=== PATIENT | male | born 1985 | race Caucasian/White ===

== ENCOUNTER → 2018-01-17 10:54 | Outpatient (CLI) | payer OTHER, SELFPAY | DX: Z23 Encounter for immunization (principal) | CPT/HCPCS: 90471; 90686 ==

== ENCOUNTER 2018-11-17 17:18 | Emergency (ER) | payer OTHER, SELFPAY ==
[2018-11-17 17:26] VITALS: BP 129/81; PULSE 60; RESP 15; TEMP 36.6; O2SAT 100; BMI 25.8
--- NOTE | 2018-11-17 17:49 | DI.CT.S_ITS ---
PROCEDURE: CT HEAD/BRAIN WO CON INDICATIONS: New headaches, R sided facial numbness x4 days. TECHNIQUE: Noncontrast 4.5 mm thick angled axial sections acquired from the foramen magnum to the vertex, with coronal and sagittal reformats. For radiation dose reduction, the following was used: automated exposure control, adjustment of mA and/or kV according to patient size. COMPARISON: None. FINDINGS: Image quality: Excellent. CSF spaces: Basal cisterns are patent. No extra-axial fluid collections. Ventricles are normal in size and shape. Brain: No intracranial hemorrhage, mass, or mass effect. Peña-white matter interface is preserved. Skull and face: Calvarium and visualized facial bones are intact, without suspicious lesions. Sinuses: Visualized sinuses and mastoids are clear. IMPRESSION: 1. No acute intracranial abnormality. Dictated by: Nolberto Junior M.D. on 11/17/2018 at 18:17 Approved by: Nolberto Junior M.D. on 11/17/2018 at 18:26
--- NOTE | 2018-11-17 17:54 | ED.NEUROSD ---
HPI - Neuro Symptoms/Deficit <PAVEL Pritchard - Last Filed: 11/17/18 19:20> General Chief Complaint: Neuro Symptoms/Deficit Stated Complaint: right side facial numbness Time Seen by Provider: 11/17/18 17:36 Source: patient Mode of arrival: ambulatory Limitations: no limitations History of Present Illness HPI Narrative: 33-year-old male with a history of asthma, presents emergency department complaining of a headache that started 4 days ago and resolved within 24 hours. He states with the headache he had associated facial right-sided numbness that started when the headache occurred but has not resolved. He denies vision changes, vision loss, double vision, limb weakness, difficulty swallowing, chest pain, shortness of breath, fevers, chills, recent illness, nausea, vomiting, changes in bowel problems, dysuria or change in speech. Patient denies history of migraines or recurrent headaches. He states that he was nervous about a possible stroke. On Anticoagulants: No Related Data Home Medications Medication Instructions Recorded Confirmed albuterol sulfate [Ventolin HFA] 1 puff INH Q4H PRN 11/17/18 11/17/18 montelukast [Singulair] 10 mg PO QPM PRN 11/17/18 11/17/18 Allergies Allergy/AdvReac Type Severity Reaction Status Date / Time azithromycin [AZITHROMYCIN] Allergy Unknown Verified 11/17/18 18:24 DUST Allergy Unknown Uncoded 08/03/17 12:26 POLLEN,CULTIVATED OAT Allergy Unknown Uncoded 08/03/17 12:26 RAGWEED Allergy Unknown Uncoded 08/03/17 12:26 Review of Systems <PAVEL Pritchard - Last Filed: 11/17/18 19:20> Review of Systems REVIEW OF SYSTEMS: GENERAL: Denies fever, chills, malaise, or wt. loss. HENT: No head trauma, hearing loss, rhinorrhea, epistaxis, sinus pressure, sore throat, or dysphagia. EYES: No loss of vision, double vision, eye pain, or irritation. CARDIOVASCULAR: No chest pain, palpitations, edema, syncope, or orthopnea. RESPIRATORY: No shortness of breath, cough, or wheeze. GASTROINTESTINAL: No change in appetite, nausea, vomiting, stool changes, or melena. GENITOURINARY: No flank pain, urinary incontinence, hesitancy, frequency, or dysuria. No vaginal discharge or dyspareunia. MUSCULOSKELETAL: No pain, weakness, or deformities. INTEGUMENTARY: No rash, lesions, or pruritus. NEURO: Complains of right-sided facial numbness, see HPI. PSYCH: No behavior or mood changes. LYMPHATIC: No lymphadenopathy. PFSH <PAVEL Pritchard - Last Filed: 11/17/18 19:20> Medical History (Updated 11/17/18 @ 18:55 by PAVEL Pritchard) Asthma (Acute) Surgical History (Updated 08/23/17 @ 06:03 by Conversion Provider) Status post appendectomy Family History (Updated 06/27/14 @ 00:00 by Conversion Provider) Father Age: 66 Hx of myocardial infarction Grandfather Age: 88 Asthma Mother Age: 60 Asthma Grandmother Age: 87 History of CVA (cerebrovascular accident) Social History Smoking Status: Never smoker Family History (Updated 06/27/14 @ 00:00 by Conversion Provider) Father Age: 66 Hx of myocardial infarction Grandfather Age: 88 Asthma Mother Age: 60 Asthma Grandmother Age: 87 History of CVA (cerebrovascular accident) Social History Smoking Status: Never smoker Exam <PAVEL Pritchard - Last Filed: 11/17/18 19:20> Initial Vital Signs Initial Vital Signs: Vital Signs Temperature 97.9 F 11/17/18 17:26 Pulse Rate 60 11/17/18 17:26 Respiratory Rate 15 11/17/18 17:26 Blood Pressure 129/81 11/17/18 17:26 Pulse Oximetry 100 11/17/18 17:26 PHYSICAL EXAMINATION: GENERAL: Well groomed, alert, and cooperative. Answers questions promptly and appropriately. Vital signs noted. HENT: Normocephalic, atraumatic. Ear canals patent, tympanic membranes normal without irritation or effusion, crisp light reflex present. Oral mucosa is pink and moist, no caries or lesions present. Pharynx reveals slight erythema. EYES: PERRLA, EOMIs, conjunctiva pink, sclera white, no periorbital swelling. NECK: Full range of motion, nontender. LYMPH: No lymphadenopathy. CHEST: Normal to inspection and without deformities. CARDIOVASCULAR: S1 and S2 sounds normal. Regular rate and rhythm, no murmurs, clicks, or bruits. No pedal edema. RESPIRATORY: Normal respiratory rate, trachea midline, airway patent. No stridor, nasal flaring or accessory muscle use. Lungs are clear in all brock without wheeze, rhonchi, or crackles. GASTROINTESTINAL: Bowel sounds normoactive. Abdomen is soft and non-tender. No organomegaly. MUSCULOSKELETAL: Normal gait and coordination. Equal tone and mass bilaterally. EXTREMITIES: CMS intact. SKIN: Warm, dry, soft, appropriate color for ethnicity. No lesions, rashes, or wounds. NEURO: Alert and Oriented X 3. Decreased light touch sensation on right side of face; CN VII abnormaltiy. CN III-, VIII-XII intact (uvula midline, full range of motion of neck shoulders, no weakness in facial muscles, hearing intact). Good coordination. No ataxia, or sensory deficits, or cognitive issues. Upper and lower extremities with 5/5 equal strength bilaterally. NIH score of 0. PSYCH: Flat affect, appropriate mood. <Vero Guerrero DO - Last Filed: 11/18/18 10:55> Initial Vital Signs Initial Vital Signs: Vital Signs Temperature 97.9 F 11/17/18 17:26 Pulse Rate 60 11/17/18 17:26 Respiratory Rate 15 11/17/18 17:26 Blood Pressure 129/81 11/17/18 17:26 Pulse Oximetry 100 11/17/18 17:26 Scores <PAVEL Pritchard - Last Filed: 11/17/18 19:20> ABCD2 Age >= 60 years: no Initial BP. Either SBP >= 140 or DBP >= 90.: no Clinical features of the TIA: other symptoms (Facial numbness) Duration of symptoms: >= 60 minutes History of diabetes: no ABCD2 Score: 2 Citation: Patient is low risk; stroke risk is 1.0% Course <PAVEL Pritchard - Last Filed: 11/17/18 19:20> Course Narrative: Discussed with patient the importance of follow-up and when to return to the emergency department if symptoms worsen. Orders Ordered: ED Orders 11/17/18 17:49 CT head/brain wo con Stat 11/17/18 18:04 Complete Blood Count AUTO DIFF Stat Comprehensive Metabolic Panel Stat Consultations Consultation #1: Patient staffed with Dr. Guerrero. Vital Signs - 8 hr 11/17/18 17:26 07/26/19 18:27 Temperature 97.9 F Pulse Rate 60 62 Respiratory Rate 15 Blood Pressure 129/81 Blood Pressure [Left Arm] 117/76 Pulse Oximetry 100 100 <Vero Guerrero DO - Last Filed: 11/18/18 10:55> Orders Ordered: ED Orders 11/17/18 17:49 CT head/brain wo con Stat 11/17/18 18:04 Complete Blood Count AUTO DIFF Stat Comprehensive Metabolic Panel Stat Vital Signs - 8 hr 11/17/18 17:26 11/17/18 18:27 Temperature 97.9 F Pulse Rate 60 62 Respiratory Rate 15 Blood Pressure 129/81 Blood Pressure [Left Arm] 117/76 Pulse Oximetry 100 100 MDM - Neuro Symptoms/Deficit <PAVEL Pritchard - Last Filed: 11/17/18 19:20> Medical Records Attestation: I reviewed the patient's medical records. Lab Data Attestation: I reviewed the patient's lab results. Result diagrams: 11/17/18 18:04 11/17/18 18:04 Lab Results 11/17/18 11/17/18 Range/Units 18:04 18:04 WBC 5.5 (4.5-11.0) X10^3/uL RBC 4.85 (4.5-5.9) X10^6/uL Hgb 15.3 (13.5-17.5) g/dL Hct 42.9 (41-53) % MCV 88.5 (80-100) fL MCH 31.6 (26-34) PG MCHC 35.8 (30-36) % RDW 12.8 (11.6-14.8) % Plt Count 210 (150-400) X10^3/uL Neut % (Auto) 47.8 L (50-75) % Lymph % (Auto) 39.5 (25-40) % [place] % (Auto) 9.2 (3-14) % Eos % (Auto) 3.2 (2-4) % Baso % (Auto) 0.3 (0-2) % Neut # (Auto) 2600 (5983-6025) /uL Lymph # (Auto) 2200 (0943-7705) /uL [place] # (Auto) 500 (0-900) /uL Eos # (Auto) 200 (0-450) /uL Baso # (Auto) 0 (0-100) /uL Sodium 141 (137-145) mmol/L Potassium 4.2 (3.4-5.1) mmol/L Chloride 101 (98-107) mmol/L Carbon Dioxide 29 (22-32) mmol/L BUN 22 H (9-20) mg/dL Creatinine 0.80 (0.66-1.25) mg/dL Estimated GFR > 60.0 (>60) mL/min BUN/Creatinine Ratio 27.5 H (6-22) Glucose 92 (70-100) mg/dL Calcium 9.3 (8.4-10.2) mg/dL Total Bilirubin 0.6 (0.2-1.3) mg/dL AST 21 (17-59) IU/L ALT 23 (21-72) IU/L Alkaline Phosphatase 59 (38-126) U/L Total Protein 7.3 (6.3-8.2) g/dL Albumin 4.5 (3.5-5.0) g/dL Globulin 2.8 (1.7-4.1) g/dL Albumin/Globulin Ratio 1.6 (1.0-2.8) Imaging Data CT scan - head: Radiologist's impression: [address] [address] [address] Scan Report Signed Patient: George Singh [facility]#: [id number] : 1985Acct:[id number] Age/Sex: 33 / MDate of Service: 11/17/18 Loc: ED Accession Number: [id number] Procedure: CT head/brain wo con Ordering Provider: Sandrita Weldon PROCEDURE: CT HEAD/BRAIN WO CON INDICATIONS: New headaches, R sided facial numbness x4 days. TECHNIQUE: Noncontrast 4.5 mm thick angled axial sections acquired from the foramen magnum to the vertex, with coronal and sagittal reformats. For radiation dose reduction, the following was used: automated exposure control, adjustment of mA and/or kV according to patient size. COMPARISON: None. FINDINGS: Image quality: Excellent. CSF spaces: Basal cisterns are patent. No extra-axial fluid collections. Ventricles are normal in size and shape. Brain: No intracranial hemorrhage, mass, or mass effect. Peña-white matter interface is preserved. Skull and face: Calvarium and visualized facial bones are intact, without suspicious lesions. Sinuses: Visualized sinuses and mastoids are clear. IMPRESSION: 1. No acute intracranial abnormality. Dictated by: Nolberto Junior M.D. on 11/17/2018 at 18:17 Approved by: Nolberto Junior M.D. on 11/17/2018 at 18:26 [facility] Narrative Medical decision making narrative: CT ordered due to new onset of headaches and continuing facial numbness. Differential includes CVA (less likely due to negative head CT, NIH score of 0, little risk factors, and lack of other symptoms) TIA (less likely as symptoms are not transient, ABCD2 score of 2, no other symptoms), MS (I would also suspect vision changes cannot rule this out at this time), and Dwyer's palsy (less likely due to lack of facial droop). Strict follow-up instructions were given the patient is further testing may be needed if symptoms continue. Strict return precautions were given to patient if symptoms continue to worsen or change. Less likely trigeminal neuralgia due to lack of pain on the side of his face. Less likely infection due to lack of systemic symptoms as well as normal white blood cell count.. Discussed with patient his slightly elevated BUN in the importance of follow-up and hydration. <Vero Guerrero, DO - Last Filed: 11/18/18 10:55> Lab Data Lab Results 11/17/18 11/17/18 Range/Units 18:04 18:04 WBC 5.5 (4.5-11.0) X10^3/uL RBC 4.85 (4.5-5.9) X10^6/uL Hgb 15.3 (13.5-17.5) g/dL Hct 42.9 (41-53) % MCV 88.5 (80-100) fL MCH 31.6 (26-34) PG MCHC 35.8 (30-36) % RDW 12.8 (11.6-14.8) % Plt Count 210 (150-400) X10^3/uL Neut % (Auto) 47.8 L (50-75) % Lymph % (Auto) 39.5 (25-40) % [place] % (Auto) 9.2 (3-14) % Eos % (Auto) 3.2 (2-4) % Baso % (Auto) 0.3 (0-2) % Neut # (Auto) 2600 (0235-4559) /uL Lymph # (Auto) 2200 (9544-0307) /uL [place] # (Auto) 500 (0-900) /uL Eos # (Auto) 200 (0-450) /uL Baso # (Auto) 0 (0-100) /uL Sodium 141 (137-145) mmol/L Potassium 4.2 (3.4-5.1) mmol/L Chloride 101 (98-107) mmol/L Carbon Dioxide 29 (22-32) mmol/L BUN 22 H (9-20) mg/dL Creatinine 0.80 (0.66-1.25) mg/dL Estimated GFR > 60.0 (>60) mL/min BUN/Creatinine Ratio 27.5 H (6-22) Glucose 92 (70-100) mg/dL Calcium 9.3 (8.4-10.2) mg/dL Total Bilirubin 0.6 (0.2-1.3) mg/dL AST 21 (17-59) IU/L ALT 23 (21-72) IU/L Alkaline Phosphatase 59 (38-126) U/L Total Protein 7.3 (6.3-8.2) g/dL Albumin 4.5 (3.5-5.0) g/dL Globulin 2.8 (1.7-4.1) g/dL Albumin/Globulin Ratio 1.6 (1.0-2.8) Discharge Plan Departure Patient Disposition: Home Clinical Impression: Facial numbness Discharge Date/Time: 11/17/18 19:02 Interventions: ED Discharge Assessment Last Done: 11/17/18 19:02 Activity Restrictions/Additional Instructions: Thank you for entrusting me with your care today. As discussed, your CT scan is negative for signs of hemorrhagic stroke. Your labs indicate that your BUN is slightly elevated at a level of 22, this may be caused by dehydration. I recommend that you follow up with your primary care provider in the next week for further testing such as an MRI if needed. Please return emergency department if he develops a sudden facial droop, difficulty swallowing, slurred speech, severe headache, vision loss, double vision, high fevers, or uncontrollable vomiting Prescriptions: No Action montelukast [Singulair] 10 mg Tablet 10 mg PO QPM PRN (Reason: Allergy Symptoms) RF: 0 albuterol sulfate [Ventolin HFA] 90 MCG/PUFF HFA aerosol inhaler 1 puff INH Q4H PRN (Reason: Shortness Of Breath) RF: 0 Referrals: Zuleika Savage DO [Primary Care Provider] - <Vero Guerrero DO - Last Filed: 11/18/18 10:55> Cosign ED Attending [place] Attestation: I was immediately available in the department for consultation. Documentation has been reviewed. I agree with assessment and plan.
[2018-11-17 18:22] LABS: Add Manual Diff / Slide Review NO; Alanine Aminotransferase 23 IU/L (21-72); Albumin 4.5 g/dL (3.5-5.0); Albumin Globulin Ratio 1.6 (1.0-2.8); Alkaline Phosphatase 59 U/L (38-126); Aspartate Aminotransferase 21 IU/L (17-59); BUN Creatinine Ratio 27.5 (6-22); Basophils Absolute Auto 0 /uL (0-100); Basophils Percent Auto 0.3 % (0-2); Bilirubin Total 0.6 mg/dL (0.2-1.3); Blood Urea Nitrogen 22 mg/dL (9-20); Calcium 9.3 mg/dL (8.4-10.2); Carbon Dioxide 29 mmol/L (22-32); Chloride 101 mmol/L (98-107); Eosinophils Absolute Auto 200 /uL (0-450); Eosinophils Percent Auto 3.2 % (2-4); Estimated Glomerular Filt Rate > 60.0 mL/min (>60); Globulin 2.8 g/dL (1.7-4.1); Glucose 92 mg/dL (70-100); HEMOLYSIS < 15 (0-50); Hematocrit 42.9 % (41-53); Hemoglobin 15.3 g/dL (13.5-17.5); Lymphocytes Absolute Auto 2200 /uL (1100-4500); Lymphocytes Percent Auto 39.5 % (25-40); Mean Corpuscular HGB Conc 35.8 % (30-36); Mean Corpuscular Hemoglobin 31.6 PG (26-34); Mean Corpuscular Volume 88.5 fL (80-100); Monocytes Absolute Auto 500 /uL (0-900); Monocytes Percent Auto 9.2 % (3-14); Neutrophils Absolute Auto 2600 /uL (1500-7000); Neutrophils Percent Auto 47.8 % (50-75); Platelet Count 210 X10^3/uL (150-400); Potassium 4.2 mmol/L (3.4-5.1); Red Blood Cell Count 4.85 X10^6/uL (4.5-5.9); Red Cell Distribution Width 12.8 % (11.6-14.8); Sodium 141 mmol/L (137-145); Total Protein 7.3 g/dL (6.3-8.2); White Blood Cell Count 5.5 X10^3/uL (4.5-11.0)
[2018-11-17 18:27] VITALS: BP 117/76; PULSE 62; O2SAT 100
== END 2018-11-17 19:02 | disposition home or self-care (01) ==
PROVIDERS: Emergency Provider Nurse Practitioner; Family Provider Family Medicine; PCP Family Medicine
DX: R20.0 Anesthesia of skin (principal); R51 Headache
CPT/HCPCS: 70450; 80053; 85025; 99282; 99284

== ENCOUNTER → 2018-11-22 13:05 | Outpatient (CLI) | payer OTHER, SELFPAY ==
[2018-11-22 13:47] LABS: Erythrocyte Sedimentation Rate 1 MM/HR (0-15)
[2018-11-22 13:57] LABS: BUN Creatinine Ratio 28.8 (6-22); Blood Urea Nitrogen 23 mg/dL (9-20); Calcium 9.8 mg/dL (8.4-10.2); Carbon Dioxide 31 mmol/L (22-32); Chloride 101 mmol/L (98-107); Estimated Glomerular Filt Rate > 60.0 mL/min (>60); Glucose 105 mg/dL (70-100); HEMOLYSIS < 15 (0-50); Potassium 4.5 mmol/L (3.4-5.1); Sodium 141 mmol/L (137-145)
[2018-11-22 14:01] LABS: Rheumatoid Factor < 8.6 IU/mL (<12.0)
== END ==
PROVIDERS: Family Provider Family Medicine; PCP Family Medicine; Visit Provider Nurse Practitioner
DX: R20.0 Anesthesia of skin (principal)
CPT/HCPCS: 36415; 80048; 85651; 86430

== ENCOUNTER → 2018-11-23 08:06 | Outpatient (CLI) | payer OTHER, SELFPAY ==
--- NOTE | 2018-11-23 08:07 | DI.MRI.S_ITS ---
PROCEDURE: MR HEAD/BRAIN WO/W CON INDICATIONS: facial numbness TECHNIQUE: Noncontrast axial T1 spin echo, axial T2 fast spin echo, sagittal and axial FLAIR, coronal T2 fast spin echo, axial gradient echo, axial diffusion and ADC through the brain. After the administration of contrast, axial and coronal 3D VIBE or T1 spin echo with fat saturation through the brain. COMPARISON: [facility], CT, CT HEAD/BRAIN WO CON, 11/17/2018, 17:55. FINDINGS: Image quality: Excellent. CSF Spaces: Basal cisterns are patent. No extra-axial fluid collections. Ventricles are normal in size and shape. Brain: No midline shift. No intracranial bleeds or masses. No abnormal intracranial enhancement. The brainstem appears normal. Diffusion-weighted images demonstrate no acute ischemic insults. No chronic ischemic insults. Normal intravascular flow voids are present. Skull and face: Calvarial marrow is normal in signal. Orbits appear normal. Sinuses: Sinuses and mastoids appear clear. IMPRESSION: Source of facial numbness is not seen. Normal for age. Dictated by: Kody Magallanes M.D. on 11/23/2018 at 9:18 Approved by: Kody Magallanes M.D. on 11/23/2018 at 9:20
== END ==
PROVIDERS: Family Provider Family Medicine; PCP Family Medicine; Visit Provider Nurse Practitioner
DX: R20.0 Anesthesia of skin (principal)
CPT/HCPCS: 70553; A9579

== ENCOUNTER → 2018-11-29 16:59 | Outpatient (CLI) | payer OTHER, SELFPAY ==
[2018-12-01 14:28] LABS: Lyme SCREEN w/ Reflex IgG IgM < 0.90 (< 0.90)
== END ==
PROVIDERS: Family Provider Family Medicine; PCP Family Medicine; Visit Provider Nurse Practitioner
DX: R20.0 Anesthesia of skin (principal)
CPT/HCPCS: 36415; 86618

== ENCOUNTER → 2018-12-08 13:21 | Outpatient (CLI) | payer OTHER, SELFPAY ==
[2018-12-08 13:43] LABS: Add Manual Diff / Slide Review NO; Basophils Absolute Auto 0 /uL (0-100); Basophils Percent Auto 0.4 % (0-2); Eosinophils Absolute Auto 100 /uL (0-450); Eosinophils Percent Auto 3.5 % (2-4); Hematocrit 43.6 % (41-53); Lymphocytes Absolute Auto 1200 /uL (1100-4500); Lymphocytes Percent Auto 31.8 % (25-40); Mean Corpuscular HGB Conc 34.5 % (30-36); Mean Corpuscular Hemoglobin 30.7 PG (26-34); Mean Corpuscular Volume 89.1 fL (80-100); Monocytes Absolute Auto 200 /uL (0-900); Monocytes Percent Auto 6.4 % (3-14); Neutrophils Absolute Auto 2300 /uL (1500-7000); Neutrophils Percent Auto 57.9 % (50-75); Platelet Count 205 X10^3/uL (150-400); Red Blood Cell Count 4.89 X10^6/uL (4.5-5.9); Red Cell Distribution Width 12.6 % (11.6-14.8); White Blood Cell Count 3.9 X10^3/uL (4.5-11.0)
[2018-12-08 13:57] LABS: Alanine Aminotransferase 21 IU/L (21-72); Albumin 4.5 g/dL (3.5-5.0); Albumin Globulin Ratio 1.6 (1.0-2.8); Alkaline Phosphatase 57 U/L (38-126); Aspartate Aminotransferase 22 IU/L (17-59); Bilirubin Total 0.6 mg/dL (0.2-1.3); Bilirubin Unconjugated 0.4 mg/dL (0.0-1.1); Globulin 2.9 g/dL (1.7-4.1); HEMOLYSIS < 15 (0-50); Sodium 141 mmol/L (137-145); Total Protein 7.4 g/dL (6.3-8.2)
[2018-12-12 16:07] LABS: Lyme SCREEN w/ Reflex IgG IgM < 0.90 (< 0.90)
== END ==
PROVIDERS: Family Provider Family Medicine; PCP Family Medicine; Visit Provider Nurse Practitioner
DX: R20.9 Unspecified disturbances of skin sensation (principal); Z79.899 Other long term (current) drug therapy
CPT/HCPCS: 36415; 80076; 84295; 85025; 86618

== ENCOUNTER → 2019-01-04 12:50 | Outpatient (CLI) | payer OTHER, SELFPAY ==
[2019-01-04 14:42] LABS: Rheumatoid Factor < 8.6 IU/mL (<12.0)
[2019-01-06 17:52] LABS: EBV EBNA Antibody IgG > 600.00 U/mL (< 18.00); EBV Virus IgM Ab < 36.00 U/mL (< 36.00)
[2019-01-06 17:58] LABS: CMV IgM Antibody < 30.00 AU/mL (< 30.00)
[2019-01-10 18:49] LABS: ANCA Screen NEGATIVE (NEGATIVE)
[2019-01-11 09:16] LABS: ANA Screen, IFA NEGATIVE (NEGATIVE)
[2019-01-11 13:49] LABS: RPR Screen NONREACTIVE
== END ==
PROVIDERS: PCP Family Medicine; Visit Provider Psychiatry & Neurology Neurology
DX: R20.0 Anesthesia of skin (principal); G50.9 Disorder of trigeminal nerve, unspecified
CPT/HCPCS: 36415; 86021; 86038; 86430; 86592; 86644; 86645; 86664; 86665

== ENCOUNTER → 2019-01-16 08:15 | Outpatient (CLI) | payer OTHER, SELFPAY | PROVIDERS: PCP Family Medicine | DX: Z23 Encounter for immunization (principal) | CPT/HCPCS: 90471; 90686 ==

== ENCOUNTER → 2019-03-15 07:53 | Outpatient (CLI) | payer OTHER, SELFPAY ==
--- NOTE | 2019-03-15 09:06 | DI.CT.S_ITS ---
PROCEDURE: CT CHEST WO CON INDICATIONS: Disorder of trigeminal nerve, unspecified. Evaluate for sarcoidosis./ TECHNIQUE: Noncontrast 5 mm thick sections acquired from the pulmonary apices to the posterior costophrenic angles. 1 mm lung window, 5 mm thick coronal and sagittal and 7 mm axial MIP reformats were then acquired. For radiation dose reduction, the following was used: automated exposure control, adjustment of mA and/or kV according to patient size. COMPARISON: None. FINDINGS: Image quality: Excellent. Lungs and pleura: No acute air space opacities. No pleural effusions or pneumothorax. Central and peripheral airways are patent and normal in caliber. Mediastinum: Heart size is normal. No pericardial effusion. No mediastinal adenopathy by size criteria. Thoracic aorta and central pulmonary arteries are normal in size. Esophagus is normal in caliber. No hiatal hernia. Bones and chest wall: No suspicious bony lesions. No vertebral body compression fractures. No axillary or supraclavicular adenopathy by size criteria. Thyroid gland appears normal where well seen but given absence of intravenous contrast is relatively poorly visualized. Abdomen: Visualized upper abdominal solid organs and bowel loops appear normal in the absence of contrast. IMPRESSION: No airspace disease is found, no adenopathy is seen. No suspicion bypass examination for presence of underlying sarcoidosis. Dictated by: Kody Magallanes M.D. on 03/15/2019 at 10:32 Approved by: Kody Magallanes M.D. on 03/15/2019 at 10:35
== END ==
PROVIDERS: PCP Family Medicine; Visit Provider Internal Medicine
DX: G50.9 Disorder of trigeminal nerve, unspecified (principal)
CPT/HCPCS: 71250

== ENCOUNTER → 2019-06-01 17:17 | Outpatient (CLI) | payer OTHER, SELFPAY ==
--- NOTE | 2019-06-01 | DI.MRI.S_ITS ---
PROCEDURE: MR ORBITS FACE NECK WO/W CON INDICATIONS: Disorder of trigeminal nerve, unspecified TECHNIQUE: Sagittal/axial/coronal T1 spin echo and STIR. After the administration of contrast, axial/coronal/sagittal T1 fast spin echo with fat saturation through the neck. COMPARISON: [facility], MR, MR HEAD/BRAIN WO/W CON, 11/23/2018, 8:27. [facility], CT, CT HEAD/BRAIN WO CON, 11/17/2018, 17:55. FINDINGS: Image quality: Excellent. The ventricular system and cortical sulci are normal in size and appearance for the patient's stated age. There is no acute intra-or extra axial fluid collection. No acute hemorrhage, mass lesion or midline shift. Brainstem is unremarkable. There are no areas of restricted diffusion. Globes are symmetrical. Sinuses are aerated. Osseous structures are intact. There are no cerebellopontine angle masses. Visualiz cranial nerves demonstrate no areas of abnormal signal, mass lesion or enhancement. IMPRESSION: 1. No acute intracranial process. 2. Visualized cranial nerves demonstrate no areas of abnormal signal, enhancement or mass lesion. Dictated by: Jana Hargrove M.D. on 06/04/2019 at 9:41 Approved by: Jana Hargrove M.D. on 06/04/2019 at 9:45
== END ==
PROVIDERS: PCP Family Medicine; Referring Provider Internal Medicine; Visit Provider Internal Medicine
DX: G50.9 Disorder of trigeminal nerve, unspecified (principal); R20.0 Anesthesia of skin
CPT/HCPCS: 70543; A9579

== ENCOUNTER → 2020-01-24 | Outpatient (CLI) | payer OTHER, SELFPAY | PROVIDERS: PCP Family Medicine; Referring Provider Internal Medicine; Visit Provider Internal Medicine | DX: Z23 Encounter for immunization (principal) | CPT/HCPCS: 90471; 90686 ==

== ENCOUNTER → 2020-02-05 08:49 | Outpatient (CLI) | payer OTHER, SELFPAY ==
[2020-02-06 00:51] LABS: COVID19 Sendout Not Detected (Not Detect)
== END ==
PROVIDERS: PCP Family Medicine; Visit Provider Physician Assistant
DX: Z01.812 Encounter for preprocedural laboratory examination (principal)
CPT/HCPCS: 87635

== ENCOUNTER → 2020-02-08 06:42 | Outpatient (CLI) | payer OTHER, SELFPAY ==
--- NOTE | 2020-02-13 08:58 | PM.PFT.1 ---
Pulmonary Function Test Referral & Results Date Patient Seen: 02/08/20 Requesting provider: David Mitchell Results: The spirometry demonstrates an FVC of 4.9 L which is 99% of predicted. The FEV1 was measured at 2.58 L which is 64% of predicted. The FEV1/FVC ratio was 53 which is 65% of predicted. Following the administration of bronchodilator there was a 37% improvement in FEV1 and a 105% improvement in FEF 25-75%. Lung volumes show an SVC of 4.84 L which is 101% of predicted. The diffusing capacity was measured at 40.34 which is 142% of predicted. The maximum voluntary ventilation was normal Interpretation: This study demonstrates moderate obstructive lung disease based on reduction FEV1 and FEV1/FVC ratio. There is evidence of significant benefit following bronchodilator. Lung volumes are normal and diffusing capacity is actually elevated. Altogether this strongly suggest a diagnosis of asthma Clinical correlation suggested
== END ==
PROVIDERS: PCP Family Medicine; Referring Provider Family Medicine; Visit Provider Family Medicine
DX: J45.20 Mild intermittent asthma, uncomplicated (principal)
CPT/HCPCS: 94060; 94726; 94729

== ENCOUNTER → 2020-03-10 08:50 | Outpatient (CLI) | payer OTHER, SELFPAY ==
--- NOTE | 2020-03-10 09:04 | DI.RAD.S_ITS ---
PROCEDURE: XR KNEE RT 3V INDICATIONS: hammer to medial knee, r/o bony abnormality TECHNIQUE: 3 views of the knee were acquired. COMPARISON: None. FINDINGS: Bones: No fractures or dislocations. No suspicious bony lesions. Soft tissues: Suspect trace joint effusion. No suspicious soft tissue calcifications. IMPRESSION: No acute osseous abnormality. Dictated by: Garfield Rosario M.D. on 03/10/2020 at 9:21 Approved by: Garfield Rosario M.D. on 03/10/2020 at 9:21
== END ==
PROVIDERS: PCP Family Medicine; Referring Provider Physician Assistant; Visit Provider Physician Assistant
DX: S89.91XA Unspecified injury of right lower leg, initial encounter (principal)
CPT/HCPCS: 73562

== ENCOUNTER → 2020-11-05 07:55 | Outpatient (CLI) | payer OTHER, SELFPAY ==
--- NOTE | 2020-11-05 07:58 | DI.RAD.S_ITS ---
PROCEDURE: XR LUMBAR SPINE MIN 4V INDICATIONS: right low back strain, hx of L5-S1 fusion TECHNIQUE: 5 views of the lumbar spine were acquired, including bilateral oblique views. COMPARISON: None. FINDINGS: Bones: 5 nonrib-bearing vertebrae are present. There is normal bony alignment. No vertebral body compression fractures. No suspicious bony lesions. Soft tissues: Overlying bowel gas pattern is normal. No suspicious soft tissue calcifications. Oblique images: There are bilateral L5 pedicle screws, possibly indicating surgery for pars defects. The screws are intact. 1 of the 2 screws, possibly the left screw, is posteriorly located, and may not travel through the pedicle. The chronicity of this finding is undetermined. IMPRESSION: 1. No evidence of acute bony abnormality of the lumbar spine. 2. There are bilateral L5 pedicle screws. 1 of the screws, presumably the left screw, is posteriorly located, and may not travel through the pedicle. This is of uncertain chronicity. Comment: Comparison with old films may be helpful. Alternatively, a lumbar spine CT may be helpful. Dictated by: Jamey Lange M.D. on 11/05/2020 at 9:10 Approved by: Jamey Lange M.D. on 11/05/2020 at 9:14
== END ==
PROVIDERS: PCP Family Medicine; Referring Provider Physician Assistant; Visit Provider Physician Assistant
DX: S39.012A Strain of muscle, fascia and tendon of lower back, initial encounter (principal); Z98.1 Arthrodesis status
CPT/HCPCS: 72110

== ENCOUNTER → 2021-01-29 14:33 | Outpatient (CLI) | payer OTHER, SELFPAY | PROVIDERS: PCP Family Medicine; Referring Provider Internal Medicine; Visit Provider Internal Medicine | DX: Z23 Encounter for immunization (principal) | CPT/HCPCS: 90471; 90686 ==

== ENCOUNTER → 2021-06-04 08:27 | Outpatient (CLI) | payer OTHER, SELFPAY ==
--- NOTE | 2021-06-04 08:28 | DI.RAD.S_ITS ---
PROCEDURE: XR FOOT LT MIN 3V INDICATIONS: foot pain TECHNIQUE: 3 views of the foot were acquired. COMPARISON: None. FINDINGS: Bones: No fractures or dislocations. No suspicious bony lesions. Soft tissues: No tibiotalar joint effusion. Achilles tendon appears normal. IMPRESSION: No acute osseous abnormality. Dictated by: Vishal Flores M.D. on 06/04/2021 at 8:57 Approved by: Vishal Flores M.D. on 06/04/2021 at 8:57
== END ==
PROVIDERS: PCP Family Medicine; Referring Provider Nurse Practitioner Family; Visit Provider Nurse Practitioner Family
DX: M79.672 Pain in left foot (principal)
CPT/HCPCS: 73630

== ENCOUNTER → 2021-07-16 08:20 | Outpatient (CLI) | payer OTHER, SELFPAY ==
--- NOTE | 2021-07-16 08:21 | DI.MRI.S_ITS ---
PROCEDURE: MRFOOT LT WO CON INDICATIONS: chronic left 5th metatarsal pain with walking TECHNIQUE: Noncontrast sagittal T1 spin echo and T2 fast spin echo with fat saturation, long-axis T1 spin echo and T2 fast spin echo with fat saturation, short-axis T1 spin echo and T2 fast spin echo with fat saturation through the forefoot. COMPARISON: [facility], CR, XR FOOT LT MIN 3V, 06/04/2021, 8:24. FINDINGS: Image quality: Excellent. Bones and joints: No bone marrow contusions or metatarsal stress fractures. Mild edema is seen within the medial hallux sesamoid that is most likely related to chronic degenerative changes versus less likely acute trabecular bone injury. The sesamoids are normally aligned. Mild degenerative changes at the 1st metatarsophalangeal joint. The sesamoid bones appear in expected positions, without internal edema. No metatarsophalangeal joint degeneration. No intraosseous lesions. Soft tissues: Chronic pressure related changes/callus are seen in the subcutaneous tissues along the plantar lateral aspect of the 5th metatarsal head. No adventitial bursal effusion. Mild nonspecific subcutaneous edema is seen dorsal to the 5th tarsometatarsal joint. Possible tiny ganglion cyst at the dorsal lateral aspect of the 5th tarsometatarsal joint measuring 4 x 3 x 3 mm. The visualized plantar foot muscles demonstrate normal signal and bulk. Visualized flexor and extensor tendons appear intact, without tenosynovitis. The distal insertions of the peroneus brevis and longus tendons are not well imaged but appear to demonstrate mild tendinosis. The principal Lisfranc ligament appears intact. Sagittal images demonstrate no evidence for plantar plate tears. IMPRESSION: 1. Small 4 mm ganglion cyst along the dorsal lateral aspect of the 5th tarsometatarsal joint. There is mild nonspecific subcutaneous edema in the adjacent soft tissues. No 5th metatarsal stress fracture. 2. Suspected mild peroneus brevis and longus tendinosis, although these tendons are only partially visualized. 3. Osseous edema within the medial hallux sesamoid is most likely related to metatarsal sesamoid degenerative changes rather than acute trabecular bone injury. 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 Dictated by: Troy Costa M.D. on 07/16/2021 at 9:10 Approved by: Troy Costa M.D. on 07/16/2021 at 9:21
== END ==
PROVIDERS: PCP Family Medicine; Referring Provider Family Medicine; Visit Provider Family Medicine
DX: M67.472 Ganglion, left ankle and foot (principal); M19.072 Primary osteoarthritis, left ankle and foot; M79.672 Pain in left foot
CPT/HCPCS: 73718

== ENCOUNTER → 2021-10-27 09:30 | Outpatient (ROUT) | payer OTHER, SELFPAY ==
[2021-10-27 09:59] LABS: Semen Sperm Prescence Post-Vas Absent (ABSENT)
== END ==
PROVIDERS: PCP Family Medicine; Visit Provider Family Medicine
DX: Z30.2 Encounter for sterilization (principal)
CPT/HCPCS: 89321

== ENCOUNTER → 2022-01-22 12:05 | Outpatient (CLI) | payer OTHER, SELFPAY | PROVIDERS: PCP Family Medicine; Referring Provider Internal Medicine; Visit Provider Internal Medicine | DX: Z23 Encounter for immunization (principal) | CPT/HCPCS: 90471; 90686 ==

== ENCOUNTER → 2023-02-17 15:48 | Outpatient (CLI) | payer OTHER, SELFPAY | PROVIDERS: PCP Family Medicine; Referring Provider Family Medicine; Visit Provider Family Medicine | DX: Z23 Encounter for immunization (principal) | CPT/HCPCS: 90471; 90686 ==

== ENCOUNTER → 2024-01-12 13:40 | Outpatient (CLI) | payer OTHER, SELFPAY ==
[2024-01-12 14:59] LABS: Add Manual Diff / Slide Review NO; Basophils Absolute Auto 0 /uL (0-100); Basophils Percent Auto 0.4 % (0-2); Eosinophils Absolute Auto 100 /uL (0-450); Eosinophils Percent Auto 3.2 % (2-4); Lymphocytes Absolute Auto 1800 /uL (1100-4500); Lymphocytes Percent Auto 39.6 % (25-40); Mean Corpuscular HGB Conc 34.9 % (30-36); Mean Corpuscular Hemoglobin 30.8 PG (26-34); Mean Corpuscular Volume 88.3 fL (80-100); Monocytes Absolute Auto 300 /uL (0-900); Monocytes Percent Auto 7.5 % (3-14); Neutrophils Absolute Auto 2300 /uL (1500-7000); Neutrophils Percent Auto 49.3 % (50-75); Platelet Count 264 X10^3/uL (150-400); Red Blood Cell Count 4.87 X10^6/uL (4.5-5.9); Red Cell Distribution Width 12.8 % (11.6-14.8); White Blood Cell Count 4.6 X10^3/uL (4.5-11.0)
[2024-01-12 15:23] LABS: Erythrocyte Sedimentation Rate 4 MM/HR (0-15)
[2024-01-12 15:26] LABS: Alanine Aminotransferase 22 IU/L (<50); Albumin 4.6 g/dL (3.5-5.0); Albumin Globulin Ratio 1.6 (1.0-2.8); Alkaline Phosphatase 71 U/L (38-126); Aspartate Aminotransferase 27 IU/L (17-59); BUN Creatinine Ratio 25.3 (6-22); Bilirubin Total 0.7 mg/dL (0.2-1.3); Blood Urea Nitrogen 21 mg/dL (9-20); C-Reactive Protein Quant < 0.5 mg/dL (<1.0); Calcium 9.8 mg/dL (8.4-10.2); Carbon Dioxide 29 mmol/L (22-32); Chloride 102 mmol/L (98-107); Cholesterol 190 mg/dL (140-199); Estimated Glomerular Filt Rate > 60 mL/min (>60); Globulin 2.8 g/dL (1.7-4.1); Glucose 89 mg/dL (70-100); HDL Cholesterol 49 mg/dL (40-60); HEMOLYSIS < 15 (0-50); LDL Cholesterol Calculated 123 mg/dL (<100); Potassium 4.9 mmol/L (3.4-5.1); Sodium 138 mmol/L (137-145); Total Protein 7.4 g/dL (6.3-8.2); Triglycerides 88 mg/dL (35-150)
[2024-01-12 15:54] LABS: TSH w/ Reflex to FT4 1.15 uIU/mL (0.47-4.68)
[2024-01-14 03:36] LABS: Apolipoprotein B 97 mg/dL (<90)
== END ==
LOC: LAB 13:41
PROVIDERS: PCP Family Medicine; Referring Provider Family Medicine; Visit Provider Family Medicine
DX: Z00.00 Encounter for general adult medical examination without abnormal findings (principal); Z82.49 Family history of ischemic heart disease and other diseases of the circulatory system; J45.909 Unspecified asthma, uncomplicated; R23.4 Changes in skin texture
CPT/HCPCS: 36415; 80053; 80061; 82172; 83695; 84443; 85025; 85651; 86038; 86140

== ENCOUNTER → 2024-02-03 17:26 | Outpatient (CLI) | payer OTHER, SELFPAY | PROVIDERS: PCP Family Medicine; Referring Provider Internal Medicine; Visit Provider Internal Medicine | DX: Z23 Encounter for immunization (principal) | CPT/HCPCS: 90471; 90656 ==

== ENCOUNTER → 2024-03-01 15:26 | Outpatient (CLI) | payer OTHER, SELFPAY ==
[2024-03-01 17:07] LABS: Appearance Urine UA CLEAR; Bilirubin Urine UA NEGATIVE (NEGATIVE); Color Urine UA YELLOW; Glucose Urine UA NEGATIVE (Negative); Ketones Urine UA NEGATIVE (NEGATIVE); Leukocyte Esterase Urine UA NEGATIVE (NEGATIVE); Nitrite Urine UA NEGATIVE (Negative); Occult Blood Urine UA NEGATIVE (Negative); Protein Urine UA NEGATIVE (Negative); Specific Gravity Urine UA 1.015 (1.000-1.035); Urobilinogen Urine UA 0.2 E.U./dL (0.2)
[2024-03-01 17:09] LABS: Urine Volume 10mL (spun)
[2024-03-01 17:17] LABS: Bacteria Urine None Seen; Culture Indicated Urine Cult Not Indicated; RBC Urine None Seen (0-5/HPF); Squamous Epithelial Cell Urine None Seen (0-5/HPF); WBC Urine None Seen (0-5/HPF)
== END ==
PROVIDERS: PCP Family Medicine; Referring Provider Family Medicine; Visit Provider Family Medicine
DX: N50.819 Testicular pain, unspecified (principal); Z82.49 Family history of ischemic heart disease and other diseases of the circulatory system; E78.41 Elevated Lipoprotein(a); E78.5 Hyperlipidemia, unspecified
CPT/HCPCS: 36415; 81001

== ENCOUNTER → 2024-03-01 15:51 | Outpatient (CLI) | payer OTHER, SELFPAY ==
--- NOTE | 2024-03-01 15:51 | DI.US.S_ITS ---
PROCEDURE: US SCROTUM INDICATIONS: right testicular pain for 1 week TECHNIQUE: Real-time scanning was performed of the scrotum and testicles, with image documentation. Color and pulse Doppler interrogation was performed of both testicles. COMPARISON: None. FINDINGS: Right: Testicle is normal in size at 4.8 x 3.9 x 2.6 cm, and homogenous in echotexture. The epididymis is slightly enlarged compared to the contralateral side, contains an ovoid 5 mm epididymal head cyst, and moderately increased vascular flow compared to the left. There is a tiny, partially calcified ovoid scrotal brett. Small, mildly complicated right hydrocele. No varicoceles. Overlying scrotal skin is normal in thickness. Left: Testicle is normal in size at 4.9 x 3.7 x 2.4 cm, and homogeneous in echotexture. Epididymis is normal in overall size and morphology. Trace, simple appearing hydrocele. No varicoceles. Overlying scrotal skin is normal in thickness. Doppler: Color and pulse Doppler demonstrate normal and symmetric arterial flow in both testicles. IMPRESSION: Mild epididymal enlargement and increased vascularity suggesting right-sided epididymitis. Testicular vascularity is symmetric. A small reactive hydrocele. Dictated by: Maricruz Christian M.D. on 03/01/2024 at 16:59 Approved by: Maricruz Christian M.D. on 03/01/2024 at 17:05
== END ==
PROVIDERS: PCP Family Medicine; Referring Provider Family Medicine; Visit Provider Family Medicine
DX: N50.811 Right testicular pain (principal); N50.89 Other specified disorders of the male genital organs; N43.3 Hydrocele, unspecified; E78.41 Elevated Lipoprotein(a); E78.5 Hyperlipidemia, unspecified; Z82.49 Family history of ischemic heart disease and other diseases of the circulatory system
CPT/HCPCS: 36415; 76870; 81001; 93975

== ENCOUNTER → 2024-06-08 13:02 | Outpatient (CLI) | payer OTHER, SELFPAY ==
[2024-06-08 14:34] LABS: Alanine Aminotransferase 36 IU/L (<50); Albumin 4.7 g/dL (3.5-5.0); Albumin Globulin Ratio 1.7 (1.0-2.8); Alkaline Phosphatase 68 U/L (38-126); Aspartate Aminotransferase 35 IU/L (17-59); BUN Creatinine Ratio 31.3 (6-22); Bilirubin Total 0.7 mg/dL (0.2-1.3); Blood Urea Nitrogen 25 mg/dL (9-20); Calcium 9.5 mg/dL (8.4-10.2); Carbon Dioxide 28 mmol/L (22-32); Chloride 103 mmol/L (98-107); Cholesterol 163 mg/dL (140-199); Estimated Glomerular Filt Rate > 60 mL/min (>60); Globulin 2.7 g/dL (1.7-4.1); Glucose 86 mg/dL (70-100); HDL Cholesterol 56 mg/dL (40-60); HEMOLYSIS < 15 (0-50); LDL Cholesterol Calculated 80 mg/dL (<100); Potassium 4.6 mmol/L (3.4-5.1); Sodium 138 mmol/L (137-145); Total Protein 7.4 g/dL (6.3-8.2); Triglycerides 134 mg/dL (35-150)
[2024-06-09 07:12] LABS: Apolipoprotein B 76 mg/dL (<90)
== END ==
PROVIDERS: PCP Family Medicine; Referring Provider Family Medicine; Visit Provider Family Medicine
DX: E78.5 Hyperlipidemia, unspecified (principal); E78.41 Elevated Lipoprotein(a)
CPT/HCPCS: 36415; 80053; 80061; 82172

== ENCOUNTER → 2025-03-19 15:59 | Outpatient (CLI) | payer OTHER, SELFPAY ==
[2025-03-19 16:23] LABS: Add Manual Diff / Slide Review NO; Hematocrit 43.1 % (41-53); Hemoglobin 15.1 g/dL (13.5-17.5); Lymphocytes Absolute Auto 2100 /uL (1100-4500); Mean Corpuscular HGB Conc 35.0 % (30-36); Mean Corpuscular Hemoglobin 31.0 PG (26-34); Mean Corpuscular Volume 88.4 fL (80-100); Platelet Count 272 X10^3/uL (150-400)
[2025-03-19 16:38] LABS: Alanine Aminotransferase 34 IU/L (<50); Albumin 5.0 g/dL (3.5-5.0); Albumin Globulin Ratio 1.7 (1.0-2.8); Alkaline Phosphatase 65 U/L (38-126); Blood Urea Nitrogen 20 mg/dL (9-20); Calcium 9.7 mg/dL (8.4-10.2); Carbon Dioxide 27 mmol/L (22-32); Chloride 104 mmol/L (98-107); Cholesterol 169 mg/dL (140-199); Estimated Glomerular Filt Rate > 60 mL/min (>60); Globulin 2.9 g/dL (1.7-4.1); Glucose 97 mg/dL (70-99); HDL Cholesterol 59 mg/dL (40-60); HEMOLYSIS < 15 (0-50); Potassium 4.6 mmol/L (3.4-5.1); Sodium 141 mmol/L (137-145); Total Protein 7.9 g/dL (6.3-8.2); Triglycerides 234 mg/dL (35-150)
[2025-03-19 17:09] LABS: TSH w/ Reflex to FT4 1.14 uIU/mL (0.47-4.68)
== END ==
PROVIDERS: PCP Family Medicine; Referring Provider Family Medicine; Visit Provider Family Medicine
DX: Z00.00 Encounter for general adult medical examination without abnormal findings (principal); E78.2 Mixed hyperlipidemia; E78.41 Elevated Lipoprotein(a); J45.20 Mild intermittent asthma, uncomplicated; Z82.49 Family history of ischemic heart disease and other diseases of the circulatory system
CPT/HCPCS: 36415; 80053; 80061; 83695; 84443; 85025